=== PATIENT | female | born 1970 | race Caucasian/White ===

== ENCOUNTER 2016-05-17 12:18 | Emergency (ER) | payer OTHER ==
[2016-05-17 12:24] VITALS: TEMP 98.1
--- NOTE | 2016-05-17 12:50 | EDPHY ---
H & P Stated Complaint: ? infection l knee/surgery by dr jackson 02/14/16 Time Seen by Provider: 05/17/16 12:49 - Personal History LMP (Females 10-55): IUD In Place Current Tetanus/Diphtheria Vaccine: No - Medical/Surgical History Hx Asthma: No Hx Chronic Respiratory Disease: No Hx Diabetes: No Hx Cardiac Disease: No Hx Renal Disease: No Hx Cirrhosis: No Hx Alcoholism: No Hx HIV/AIDS: No Hx Splenectomy or Spleen Trauma: No Other PMH: l knee surgery - Social History Smoking Status: Never smoked Constitutional: Initial Vital Signs Temperature (C) 36.7 C 05/17/16 12:21 Heart Rate 58 L 05/17/16 12:21 Respiratory Rate 18 05/17/16 12:21 Blood Pressure 117/66 05/17/16 12:21 O2 Sat (%) 100 05/17/16 12:21 O2 Delivery Mode Room Air Allergies/Adverse Reactions: No Known Allergies Allergy (Verified 05/17/16 12:21) Home Medications: Medication Instructions Recorded Cholecalciferol Vit D3 [Vitamin D3 10,000 units PO DAILY 05/03/16 2000 units tab (OTC)] Esomeprazole Magnesium [Nexium] 20 mg PO DAILY 05/03/16 Herbals/Supplements -Info Only 1 ea PO DAILY 05/03/16 Ibuprofen [Motrin (*)] 400 mg PO DAILY PRN 05/03/16
--- NOTE | 2016-05-17 13:03 | EDPHY ---
H & P Stated Complaint: ? infection l knee/surgery by dr jackson 02/14/16 Time Seen by Provider: 05/17/16 12:49 HPI/ROS: CHIEF COMPLAINT: Recurrent left leg swelling erythema HISTORY OF PRESENT ILLNESS: The patient presents to the ED with a 2 day history of recurrent left leg swelling. The patient was initially seen in the emergency department approximately 2 weeks ago. She was diagnosed with cellulitis at that time. After leaving the emergency department she did have a blood culture which became positive. She return for admission and received IV vancomycin. Ultimately it was felt the blood culture was secondary to a contaminant. The patient did undergo arthrocentesis after receiving antibiotics which demonstrated no significant infection or inflammatory cells. The patient was seen by her primary care provider who contacted Infectious Disease given the recurrence of the patient's symptoms. They have recommended the patient come to the ED for further evaluation. Additionally, the patient now complains of some tenderness and swelling in her left 4th toe. The patient reportedly stop taking antibiotics 1 week ago. REVIEW OF SYSTEMS: A comprehensive 10 point review of systems is otherwise negative aside from elements mentioned in the history of present illness. Source: Patient Exam Limitations: No limitations - Personal History LMP (Females 10-55): IUD In Place Current Tetanus/Diphtheria Vaccine: No - Medical/Surgical History Hx Asthma: No Hx Chronic Respiratory Disease: No Hx Diabetes: No Hx Cardiac Disease: No Hx Renal Disease: No Hx Cirrhosis: No Hx Alcoholism: No Hx HIV/AIDS: No Hx Splenectomy or Spleen Trauma: No Other PMH: l knee surgery - Social History Smoking Status: Never smoked - Physical Exam Exam: General Appearance: Alert, no distress Eyes: Pupils equal and round no pallor or injection ENT, Mouth: Mucous membranes moist Respiratory: There are no retractions, lungs are clear to auscultation Cardiovascular: Regular rate and rhythm Gastrointestinal: Abdomen is soft and nontender, no masses, bowel sounds normal Neurological: A&O, normal motor function, normal sensory exam, normal cranial nerves Skin: Cellulitic changes noted throughout the left leg, cellulitic changes noted to the left 4th toe Musculoskeletal: Neck is supple nontender Extremities: No joint effusion Constitutional: Initial Vital Signs Temperature (C) 36.7 C 05/17/16 12:21 Heart Rate 58 L 05/17/16 12:21 Respiratory Rate 18 05/17/16 12:21 Blood Pressure 117/66 05/17/16 12:21 O2 Sat (%) 100 05/17/16 12:21 O2 Delivery Mode Room Air Allergies/Adverse Reactions: No Known Allergies Allergy (Verified 05/17/16 12:21) Home Medications: Medication Instructions Recorded Cholecalciferol Vit D3 [Vitamin D3 10,000 units PO DAILY 05/03/16 2000 units tab (OTC)] Esomeprazole Magnesium [Nexium] 20 mg PO DAILY 05/03/16 Herbals/Supplements -Info Only 1 ea PO DAILY 05/03/16 Ibuprofen [Motrin (*)] 400 mg PO DAILY PRN 05/03/16 Medical Decision Making - Diagnostics Imaging: MRI knee with and without contrast: Enhancement of the synovium was noted, joint effusion is present, no extra-articular abscess present, no myositis. Study results reported to me by Dr. Yousuf Gonzalez. Procedures: Procedure: Arthrocentesis. Indication: Evaluation for the possibility of septic joint. Risks, benefits, alternatives of the procedure were discussed with the patient and consent obtained. The patient was prepped and draped in the usual sterile fashion over the left knee joint. Local anesthesia was provided with 1% lidocaine. The joint space was entered with a 18 gauge needle and 10 cc of clear/serosanguineous fluid was obtained. There were no complications. The procedure was performed by myself. ED Course/Re-evaluation: The patient presents to the ED for recurrent erythema to her left leg. The patient had an MRI of her leg which demonstrates no evidence of an obvious extra -articular abscess. The patient's inflammatory markers and CBC are within normal limits. The patient did have blood cultures x2 obtained in the ED. Consultation was made with Dr. Posada from Infectious Disease. The patient did undergo arthrocentesis by myself without complication in the emergency department. The patient's other centesis does not demonstrate evidence of septic arthritis or crystalline arthropathy. Dr. Posada will treat the patient with IV ceftriaxone for cellulitis. The patient will contact the infusion center to set up an additional IV dose of ceftriaxone on Friday and Friday. The patient will follow up with Dr. Posada on Friday in the office. Differential Diagnosis: Differential diagnosis considered includes cellulitis, abscess, septic arthritis , gout, pseudogout - Data Points Laboratory Results: Laboratory Results 05/17/16 13:00 05/17/16 13:00 05/17/16 05/17/16 05/17/16 16:40 16:05 13:00 WBC 7.11 10^3/uL (3.80-9.50) RBC 4.71 10^6/uL (4.18-5.33) Hgb 13.9 g/dL (12.6-16.3) Hct 40.7 % (38.0-47.0) MCV 86.4 fL (81.5-99.8) MCH 29.5 pg (27.9-34.1) MCHC 34.2 g/dL (32.4-36.7) RDW 12.8 % (11.5-15.2) Plt Count 338 10^3/uL (150-400) MPV 8.5 L fL (8.7-11.7) Neut % (Auto) 53.1 % (39.3-74.2) Lymph % (Auto) 36.3 % (15.0-45.0) [place] % (Auto) 8.7 % (4.5-13.0) Eos % (Auto) 0.8 % (0.6-7.6) Baso % (Auto) 0.8 % (0.3-1.7) Nucleat RBC Rel Count 0.0 % (0.0-0.2) Absolute Neuts (auto) 3.77 10^3/uL (1.70-6.50) Absolute Lymphs (auto) 2.58 10^3/uL (1.00-3.00) Absolute Monos (auto) 0.62 10^3/uL (0.30-0.80) Absolute Eos (auto) 0.06 10^3/uL (0.03-0.40) Absolute Basos (auto) 0.06 10^3/uL (0.02-0.10) Absolute Nucleated RBC 0.00 10^3/uL (0-0.01) Immature Gran % 0.3 % (0.0-1.1) Immature Gran # 0.02 10^3/uL (0.00-0.10) ESR 4 MM/HR (0-20) Sodium 140 mEq/L (134-144) Potassium 4.2 mEq/L (3.5-5.2) Chloride 103 mEq/L (97-110) Carbon Dioxide 26 mEq/l (22-31) Anion Gap 11 mEq/L (8-16) BUN 16 mg/dL (7-23) Creatinine 0.8 mg/dL (0.6-1.0) Estimated GFR > 60 Glucose 91 mg/dL (70-100) Calcium 9.7 mg/dL (8.5-10.4) Total Bilirubin 0.8 mg/dL (0.1-1.4) Conjugated Bilirubin 0.2 mg/dL (0.0-0.5) Unconjugated Bilirubin 0.6 mg/dL (0.0-1.1) AST 35 IU/L (14-46) ALT 23 IU/L (9-52) Alkaline Phosphatase 57 IU/L (38-126) C-Reactive Protein < 5.0 mg/L (<10.0) Total Protein 6.9 g/dL (6.3-8.2) Albumin 4.0 g/dL (3.5-5.0) Fl Pathologist Review Aniya BREAUX MD Synovial Source SYNOVIAL Synovial Color RED (CLS/PALE YL) Synovial Appearance HAZY H (CLEAR) Synovial WBC 193 H /mm3 (0-150) Synovial RBC 74466 H /mm3 (0-0) Synovial Neutrophils 18 % (0-25) Synovial Lymphocytes 58 % Synov Monos/Macrophage 24 % Synovial Crystals NONE SEEN (NONE SEEN) KEN Screen Pending C.trachomatis RNA (TMA) Pending HIV 1&2 Antibody Pending N.gonorrhoeae RNA (TMA) Pending Medications Given: Discontinued Medications Ceftriaxone Sodium/Dextrose (Rocephin 1 Gm (Premix)) 50 mls @ 100 mls/hr IV EDNOW ONE PRN Reason: Protocol Stop: 05/17/16 17:47 Last Admin: 05/17/16 17:28 Dose: 50 mls Departure - Departure Disposition: Home, Routine, Self-Care Clinical Impression: Left leg cellulitis Condition: Good Instructions: Cellulitis (ED) Additional Instructions: Please call [phone] to set up appointment for infusion for 05/18, 05/19, . It is located on the 3rd floor of the hospital. You should register the first day at the registration near the ER. Please leave your IV in place so that additional antibiotics can be given. Please follow up as scheduled with Dr. Posada. Referrals: Kierra Posada MD [Medical Doctor] - 05/21/16 8:30 am DAVID ADORNO [Primary Care Provider] -
[2016-05-17 13:25] LABS: % IMMATURE GRANULYOCYTES 0.3 % (0.0-1.1); ABSOLUTE IMMATURE GRANULOCYTES 0.02 10^3/uL (0.00-0.10); ADD DIFF? NO; ADD MORPH? NO; ADD SCAN? NO; ATYPICAL LYMPHOCYTE FLAG 10 (0-99); FRAGMENT RBC FLAG 0 (0-99); HEMATOCRIT 40.7 % (38.0-47.0); HEMOGLOBIN 13.9 g/dL (12.6-16.3); LEFT SHIFT FLG 0 (0-99); LIPEMIA HEMOLYSIS FLAG 90 (0-99); MEAN CELL HEMOGLOBIN 29.5 pg (27.9-34.1); MEAN CELL HEMOGLOBIN CONCENTR. 34.2 g/dL (32.4-36.7); MEAN CELL VOLUME 86.4 fL (81.5-99.8); MEAN PLATELET VOLUME 8.5 fL (8.7-11.7); PLATELET CLUMPS FLAG 10 (0-99); PLATELET COUNT 338 10^3/uL (150-400); RED BLOOD CELL COUNT 4.71 10^6/uL (4.18-5.33); RED CELL DISTRIBUTION WIDTH 12.8 % (11.5-15.2)
[2016-05-17] MEDS ORDERED: GADOBUTROL 10 ML VIAL IVP ONE (13:42)
[2016-05-17 14:08] LABS: ANION GAP 11 mEq/L (8-16); C-REACTIVE PROTEIN < 5.0 mg/L (<10.0); CALCIUM 9.7 mg/dL (8.5-10.4); CARBON DIOXIDE 26 mEq/l (22-31); CHLORIDE 103 mEq/L (97-110); CREATININE 0.8 mg/dL (0.6-1.0); GLOMERULAR FILTRATION RATE > 60; GLUCOSE 91 mg/dL (70-100); POTASSIUM 4.2 mEq/L (3.5-5.2); SODIUM 140 mEq/L (134-144)
[2016-05-17 14:22] LABS: SEDIMENTATION RATE 4 MM/HR (0-20)
--- NOTE | 2016-05-17 15:54 | MR ---
MRI of the Left Knee, Without and With Contrast May 17, 2016 History: Prior left knee joint effusion and aspiration. Persistent pain and swelling. Technique: Precontrast axial, sagittal, and coronal MR sequences of the left knee are obtained. After intravenous administration of 6 mL Gadavist, postcontrast-enhanced imaging is obtained in three plan es. Findings: There is a moderate left knee joint effusion associated with diffuse synovial thickening a nd enhancement compatible with synovitis. No evidence of meniscal tear or focal articular cartilage lesion. Patellofemoral, medial, lateral com partments appear intact. Anterior and posterior cruciate ligaments are intact as are medial and lateral collateral ligaments. Distal quadriceps and patellar tendons are intact. No periarticular fluid collections are identified. Impression: Moderate left knee joint effusion with diffuse synovitis. No evidence of internal derang ement. Results called to Dr. Brooks Dunn at 3:30 p.m. e:[email or web address]
[2016-05-17 16:29] LABS: BILIRUBIN,TOTAL 0.8 mg/dL (0.1-1.4); BILIRUBIN-CONJUGATED 0.2 mg/dL (0.0-0.5); BILIRUBIN-UNCONJUGATED 0.6 mg/dL (0.0-1.1); TOTAL PROTEIN 6.9 g/dL (6.3-8.2)
[2016-05-17 16:55] LABS: WBC, SYNOVIAL FLUID 193 /mm3 (0-150)
[2016-05-17 17:12] LABS: CRYSTALS, SYNOVIAL FLUID NONE SEEN (NONE SEEN)
[2016-05-17 18:14] VITALS: BP 115/78; PULSE 80; RESP 17; O2SAT 98
--- NOTE | 2016-05-17 21:25 | GCON ---
[f rep st] CONSULTATION INFECTIOUS DISEASE CONSULTATION. DATE OF CONSULTATION: 05/17/2016 REFERRING PHYSICIAN: Brooks Dunn MD HISTORY OF PRESENT ILLNESS: A 46-year-old, healthy woman who has a minimal past medical history who presents to the emergency room today for recurrent left leg swelling and redness. The patient initially was evaluated on May 03, 2016, for the same thing which she reports the erythema was in a larger area on her left leg. She was admitted overnight in the hospital, given IV vancomycin. She also underwent a tap of her left knee which was difficult and had to be done under guidance and only a couple ml of synovial fluid were obtained with cultures eventually being negative and WBC count in the synovial fluid was characterized as 0. Crystals studies were not performed. Blood cultures were performed with 1/2 growing 2 different streptococcal organisms which were considered to be contaminant. Patient was discharged on the on oral Keflex of which she took her last dose on May 12. She reports that the bandlike erythema that is on her left leg never completely resolved and is getting slightly worse. Today she was seen by her primary care who felt that she possibly had a septic joint and she was sent to the emergency room for further evaluation. She denies any systemic symptoms including fevers, chills, night sweats. In fact, the patient has been able to continue to exercise, specifically doing kick boxing exercise. She has no change in her energy. She does describes some vaginal discharge which started following antibiotic administration and she felt to be a yeast infection. PAST MEDICAL HISTORY: She has had left knee arthroscopic surgery in February of 2016 for evaluation of an injury. She has an IUD in place to prevent . She had 3 pregnancies with healthy children. SOCIAL HISTORY: No tobacco. Occasional alcohol. 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 No recent international travel. Last travel was to [place]. She denies any known tick bites in the past. She is originally actually from [place]. No hot tubs. No specific injury. FAMILY HISTORY: reviewed and noncontributory ALLERGIES: NKDA. MEDICATIONS: None. REVIEW OF SYSTEMS: A complete 10-point review of systems was performed and is negative except as mentioned in HPI. PHYSICAL EXAMINATION: VITAL SIGNS: Blood pressure 115/78, heart rate is 56-80 , respiratory rate 17, saturation 98% on room air, temperature 36.7. GENERAL: This is a very healthy-appearing woman, well-groomed, in no acute distress. HEENT: Good dentition. Pupils are reactive bilaterally. No conjunctival hemorrhages. CARDIOVASCULAR: Regular rate and rhythm with a faint systolic murmur at the left sternal border consistent with mitral prolapse. CHEST: Clear to auscultation bilaterally. ABDOMEN: Soft, nontender. Bowel sounds are present. EXTREMITIES: She has bandlike erythema over the left knee with a small joint effusion. She is only able to flex her knee to 45 degrees. She is able to have complete extension at 180. Minimal warmth associated with the knee and no tenderness to palpation. She has good dorsalis pedis pulses bilaterally. NEUROLOGICAL: She is alert, oriented x4, moving all 4 extremities equally. LABORATORY DATA: A synovial fluid aspiration was performed again today which showed a slightly elevated WBC at 193 and 27,000 RBCs, 18% lymphocytes, 58% neutrophils, 24% monocytes. White count 7.1, hematocrit 40, platelets of 338, 53% neutrophils, 36% lymphocytes, creatinine 0.8. LFTs within normal limits. Albumin 4.2, beta HCG was negative. HIV screen was negative. Chlamydia/ gonorrhea screen was pending and KEN screen is pending. Blood and synovial fluids are pending. ASSESSMENT AND PLAN: This is a 46-year-old woman with persistent bandlike erythema without systemic signs of infection of her left leg in the range of the knee. Certainly this could be an unusual case of cellulitis that did not respond to typical coverage. Could consider underlying septic arthritis although the synovial fluid is unimpressive with a larger percentage of lymphocytes. Could consider noninfectious etiologies such as autoimmune inflammatory arthritis. No evidence of pseudogout based on negative crystal studies. Also could consider a reactive arthritis related to sexually transmitted infections and chlamydia and gonorrhea screening was performed. Also could consider a smoldering infection in the left knee related to less virulent pathogens such as P acnes. Occasionally to get a definitive diagnosis , synovial biopsy has to be performed. For now we will await anaerobic and aerobic cultures of synovial fluid now that larger aspirate was performed. We will empirically re-treat for cellulitis with ceftriaxone over the weekend in the outpatient clinic. Orders were written. The patient is instructed to follow up in my clinic at 8:30 on May 21. Time was greater than 75 minutes, 50% time spent with education, counseling and coordination of care with Dr. Dunn and education about differential diagnosis of persistent redness of her left leg including noninfectious etiologies such as inflammatory arthritis secondary to sexually transmitted infections. Thank you for this consultation. /[id number]/MODL MTDD
[2016-05-20 12:33] LABS: CHLAMYDIA AMPLIFICATION GENPRB NEGATIVE (NEGATIVE)
== END 2016-05-17 18:10 | disposition home or self-care (01) ==
PROC: 0S9D3ZZ Drainage of Left Knee Joint, Percutaneous Approach (ICD-10-PCS; principal; 2016-05-17)
DX: L03.116 Cellulitis of left lower limb (principal)
CPT/HCPCS: 96365; A9585; J0696